=== PATIENT | female | born 1935 | race Caucasian/White ===

== ENCOUNTER → 2017-01-08 09:46 | Outpatient (CLI) | payer MEDICARE, OTHER ==
[2016-09-02 11:25] VITALS: BMI 37.6
[~2017-01-08 09:46] MED LIST: BAYER CHEWABLE81 MG PO; FLUTICASONE PRO16 GM NASAL; OMEPRAZOLE40 MG PO; PLAVIX75 MG PO; PROBIOTIC1 EAC1 PO; PROPAFENONE HC300 MG PO; RYTHMOL225 MG; STOOL SOFTENER240 MG PO; SYMBICORT 16010.2 GM INH; SYSTANE 0.3-0.4%5 ML EACH EYE; TRIMETHOPRIM100 MG PO
[2017-01-09 09:13] LABS: IMMUNOGLOBULIN E 24 IU/mL (0-100)
== END | disposition home or self-care (01) ==
LOC: D.RT 09:46
PROVIDERS: Internal Medicine Pulmonary Disease
DX: J45.909 Unspecified asthma, uncomplicated (principal)

== ENCOUNTER → 2017-03-22 08:24 | Outpatient (CLI) | payer MEDICARE, OTHER ==
[2016-09-02 11:25] VITALS: BMI 37.6
--- NOTE | ~2017-03-22 | EC ---
PATIENT:STEPH HAWKINS DATE OF SERVICE: 03/22/17 SEX: F MEDICAL RECORD: [id number] DATE OF : 33 LOCATION:D[facility] AGE OF PATIENT: 81 ADMISSION DATE: 03/22/17 REFERRING PHYSICIAN: INTERPRETING PHYSICIAN: NATACHA MCGEE MD ECHOCARDIOGRAM REPORT ECHO CHARGES 4 ECHO COMPLETE CLINICAL DIAGNOSIS: CORONARY ARTERIOSCLEROSIS ECHOCARDIOGRAPHIC MEASUREMENTS (adult normal given) AC root (d.<3.7cm) 3.7 LV Septum d (<1.2 cm> 1.5 Valve Excursion 2.2 LV Septum (systole) 2.0 Left Atria (s.<4.0cm> 4.3 LVPW d(<1.2cm) 1.4 RV (d.<2.3cm) 2.4 LVPW (sytole) 1.9 LV diastole(<5.6CM) 6.8 MV E-F(>70mm/sec) LV systole 4.3 LVOT Diameter 1.7 MV exc.(>10mm) Est.ejection fraction (50-75%) Pericardial Effusion N DOPPLER: LVIT A 58.0 E 44.0 LA RVSP 38.0 LVOT 104 AOP1/2T Asc. Ao 134 RVOT 66.0 RA PA 82.0 AV Gradient Peak 7.1 AV Mean 3.6 AV Area 1.6 MV Gradient Peak 3.3 MV Mean 0.88 MV Area COMMENTS: Sales Planning Manager: Cristopher D[employer] Physical [employer] Professor:1 Dr. Mcgee TAPE# PACS DATE OF SERVICE: 03/22/2017 Echocardiogram FINDINGS: 1. Left ventricular chamber size is mildly dilated. Left ventricular systolic function is lower limits of normal to mildly depressed at 45% to 50%. 2. Left atrium is mildly enlarged at 4.3 cm. Right atrium and right ventricular chamber sizes are within normal limits. 3. Valvular structures have normal structure and motion. ECHOCARDIOGRAM REPORT [id number] STEPH HAWKINS 4. Doppler interrogation reveals mild mitral regurgitation, [id number] tricuspid regurgitation, no other valvular insufficiency or stenosis. Pulmonary systolic pressure is preserved, estimated at 38 mmHg. 5. No evidence of pericardial effusion or left ventricular thrombus. TRANSINT:[id number] Voice Confirmation ID: [id number] DOCUMENT ID: [id number] NATACHA MCGEE MD CC: [id number] DICTATION DATE: 03/22/17 1110 GLOBAL SALES MANAGER: 03/23/17 0214 DEP CLI 03/22/17 [place] [id number] [place] [id number]
== END | disposition home or self-care (01) ==
LOC: D.ECHO 08:24
DX: I25.10 Atherosclerotic heart disease of native coronary artery without angina pectoris (principal)

== ENCOUNTER 2017-07-29 10:12 | Emergency (ER) | payer MEDICARE, OTHER ==
[2016-09-02 11:25] VITALS: BMI 37.6
== END 2017-07-29 14:15 | disposition home or self-care (01) ==
LOC: D.ER 10:12
DX: M71.21 Synovial cyst of popliteal space [Baker], right knee (principal); I25.10 Atherosclerotic heart disease of native coronary artery without angina pectoris; I10 Essential (primary) hypertension; J45.909 Unspecified asthma, uncomplicated; K21.9 Gastro-esophageal reflux disease without esophagitis; J44.9 Chronic obstructive pulmonary disease, unspecified

== ENCOUNTER → 2018-09-07 10:29 | Outpatient (CLI) | payer MEDICARE, OTHER ==
[2016-09-02 11:25] VITALS: BMI 37.6
== END | disposition home or self-care (01) ==
LOC: D.RT 10:29 → D.RAD 09-22 09:00 → D.RT 09-22 09:00
DX: J45.909 Unspecified asthma, uncomplicated (principal)

== ENCOUNTER → 2019-08-15 07:40 | Outpatient (CLI) | payer MEDICARE, OTHER ==
[2016-09-02 11:25] VITALS: BMI 37.6
== END | disposition home or self-care (01) ==
LOC: D.RT 07:40
PROVIDERS: ATTEND Internal Medicine Pulmonary Disease
DX: J44.9 Chronic obstructive pulmonary disease, unspecified (principal)